=== PATIENT | female | born 1995 | race Caucasian/White ===

== ENCOUNTER 2018-10-10 23:09 | Emergency (ER) | payer OTHER ==
[~2018-10-10] VITALS: Ht 172.7 cm; Wt 45.4 kg
--- NOTE | 2018-10-10 23:09 | NUR ---
Patient to ER bed [address] to be evaluated by . Accompanied by Sheriff Mann
[2018-10-10 23:14] VITALS: BP_SYST 118
--- NOTE | 2018-10-10 23:40 | NUR ---
Written and verbal consent obtained from patient for blood alcohol, name and verified by patient. Disinfected patient's skin with Iodine that did not contain alcohol or other volatile organic compound. Collected the blood from the subject named by venipuncture, in the presence of Officer Vadim Ibrahim #[id number]. Used a sterile, dry hypodermic needle and dry vacuum blood collection. Two dry vacuum blood collection was supplied by the officer named above. Withdrew a specimen of blood from R Arm of the subject named above. Inverted both blood tube several times to ensure that the preservative and anticoagulant were thoroughly mixed in the blood specimen. I initialed both blood tube label for identification. The labeled blood tubes was handed directly to the Officer named above. The blood tubes stopper remained in place while I had possession of the blood tubes. The Officer placed tubes into envelope and sealed it in my presence. Envelope initialed by myself and Officer named above. Patient tolerated well, bandage applied, and bleeding controlled.
--- NOTE | 2018-10-10 23:45 | NUR ---
Dr. Shani Orr / Chair side for Pt jorgito
--- NOTE | 2018-10-10 23:59 | NUR ---
Donavan Best Deputy to ED for medical evaluation prior to going to intermediate today. The patient was pulled over by police for suspicion for intoxication. No accident reported. Patient has no medical complaints and denies having any pain at this time. No other injuries and or complaints noted. VSS, No s/s of acute distress.
[2018-10-11] VITALS: BP_SYST 118
--- NOTE | 2018-10-11 | NUR ---
Patient given written and verbal discharge instructions and verbalizes understanding. ER MD discussed with patient the results and treatment provided. Patient in stable condition. ID arm band removed. Patient educated on pain management and to follow up with PMD. Pain Scale 0/10. Opportunity for questions provided and answered.
== END 2018-10-11 ==
LOC: SED 23:09
DX: Z02.89 Encounter for other administrative examinations (principal)
CPT/HCPCS: 99283